=== PATIENT | male | born 1975 | race Caucasian/White ===

== ENCOUNTER 2020-04-16 10:20 | Emergency (ER) | payer OTHER, SELFPAY | END 2020-04-16 10:40 | disposition left against medical advice (07) | LOC: NAV ERS 10:20 | DX: T63.061A Toxic effect of venom of other North and South American snake, accidental (unintentional), initial encounter (principal); I10 Essential (primary) hypertension; F17.220 Nicotine dependence, chewing tobacco, uncomplicated | CPT/HCPCS: 99283 ==